=== PATIENT | female | born 1975 | race Two or more races ===

== ENCOUNTER → 2018-04-18 | Outpatient (CLI) | payer BC | LOC: BMCIMAGING 07:30 | PROVIDERS: ATTEND Family Medicine | DX: R10.2 Pelvic and perineal pain (principal); R93.8 Abnormal findings on diagnostic imaging of other specified body structures ==

== ENCOUNTER → 2018-07-05 | Outpatient (CLI) | payer BC | LOC: BMCIMAGING 15:18 | PROVIDERS: ATTEND Internal Medicine Rheumatology | DX: M25.511 Pain in right shoulder (principal) ==